=== PATIENT | female | born 1995 | race Caucasian/White ===

== ENCOUNTER 2022-07-28 16:09 | Emergency (ER) | payer OTHER, SELFPAY ==
--- NOTE | ~2022-07-28 | CT_ITS ---
EXAMINATION: CT ankle LT wo con DATE: 07/28/2022 18:40 INDICATION: Possible calcaneal fracture TECHNIQUE: Computed tomography (CT) of the left ankle was performed without intravenous contrast. The dose-length product was 329.20 mGy-cm. Automated exposure control and iterative reconstruction technique were employed. COMPARISON: Left foot series dated 07/28/2022 FINDINGS: There are small avulsion fracture fragments along the distal lateral margin of the cuboid b one with adjacent soft tissue swelling. The calcaneus appears to be intact. There is also a subtle av ulsion from the lateral margin of the talus, age indeterminate.. IMPRESSION: 1. Avulsion fractures from the distal lateral margin of the cuboid and the lateral aspect of the talu s with associated soft tissue swelling. Reviewed, dictated and finalized at location A. LIGHTER IMPRESSION: 1. Avulsion fractures from the distal lateral margin of the cuboid and the late ral aspect of the talus with associated soft tissue swelling.
--- NOTE | ~2022-07-28 | XR_ITS ---
XR foot LT min 3V 07/28/2022 17:55 INDICATION: Left foot pain and swelling after fall PROCEDURE: 4 views left foot COMPARISON: No prior studies for comparison. FINDINGS: There is an avulsion fracture likely originating from the distal lateral margin of the calc aneus. There is adjacent soft tissue swelling. No other fracture. Lisfranc joint intact. No foreign b odies. Ankle mortise intact.. IMPRESSION: 1: Small avulsion fracture likely originating from the distal lateral margin of the calcaneus. Correl ate clinically for point tenderness. Reviewed, dictated and finalized at location A. [employer] IMPRESSION: 1: Small avulsion fracture likely originating from the distal lateral margin of the calcaneus. Correlate clinically for point tenderness.
[2022-07-28 17:11] VITALS: BP 131/78; PULSE 99; RESP 14; TEMP 37.4; O2SAT 100
--- NOTE | 2022-07-28 17:58 | ED.LOWEXIN ---
HPI - Extremity Injury (Lower) General Chief Complaint: Extremity Injury, Lower Stated Complaint: covid + ankle pain Time Seen by Provider: 07/28/22 17:52 History of Present Illness HPI Narrative: Patient is a 27-year-old female here for evaluation of left foot pain after a fall today. Patient states that she was going down several steps when she accidentally stepped with her foot in inversion. Since the accident she has reported pain on the lateral aspect of her left foot, worse with inversion and with walking. She has not taken any medicine for pain. Denies any numbness or tingling in the extremity. Related Data Allergies Allergy/AdvReac Type Severity Reaction Status Date / Time No Known Allergies Allergy Verified 07/28/22 18:03 Review of Systems Review of Systems: Gen.: Denies fevers or chills Eyes: Denies eye pain or visual change ENT: Denies congestion Respiratory: Denies shortness of breath or cough CV: Denies chest pain or palpitations GI: Reports abdominal pain nausea, emesis or diarrhea denies burning, urgency, frequency or hematuria Musculoskeletal: Reports left foot pain. D Neuro: Denies numbness, tingling, weakness or focal weakness Skin: Denies rash 10 point review of systems negative, other than as per history of present illness, past medical history and other positives and review of systems Exam Narrative: Gen: Alert, oriented, no acute disease Eyes: EOMI, no icterus Pulm: Respirations even and unlabored, symmetric thorax expansion, no audible stridor or visible cyanosis CV: Regular rate per telemetry GI: No distension, no voluntary/involuntary guarding Neuro: AOx4, moves all extremities without apparent difficulty or weakness, follows commands MSK: left foot has swelling and hematoma to lateral aspect over the base of the fifth metatarsal. She has tenderness to palpation along the lateral aspect and medial aspect of the calcaneus. Patient is able to plantar and dorsiflex the foot, notes most pain with plantarflexion. Compartments are soft. Skin: She has a small superficial abrasion over the lateral aspect of the foot with no active bleeding. Psych: Normal mood/affect, insight/judgement good, adequate fund of knowledge, recent/remote memory intact Course Vital Signs Vital signs: Vital Signs Temperature 99.3 F 07/28/22 17:11 Pulse Rate 99 07/28/22 17:11 Respiratory Rate 14 07/28/22 17:11 Blood Pressure 131/78 07/28/22 17:11 Pulse Oximetry 100 07/28/22 17:11 Oxygen Delivery Room Air 07/28/22 17:11 Temperature 99.3 F 07/28/22 17:11 Pulse Rate 99 07/28/22 17:11 Respiratory Rate 14 07/28/22 17:11 Blood Pressure 131/78 07/28/22 17:11 Pulse Oximetry 100 07/28/22 17:11 Oxygen Delivery Room Air 07/28/22 17:11 MDM - Extremity Injury (Lower) MDM Narrative Medical decision making narrative: 27-year-old female here for evaluation of left foot pain after a mechanical fall today. Patient has soft compartments, strong distal pulses, but has swelling and tenderness to the base of her fifth metatarsal. There was evidence of a possible lateral calcaneal avulsion fracture on the x-ray, followed up by CT that shows a avulsion fracture of her cuboid and talus. She was placed in a posterior short leg splint and was instructed to follow-up with orthopedics. She was given crutches. We discussed return precautions and she voiced understanding. Discharge Plan Discharge Clinical Impression: Fracture of cuboid Qualifiers: Encounter type: initial encounter Fracture type: closed Laterality: left Fracture of talus Qualifiers: Encounter type: initial encounter Fracture type: closed Laterality: left Patient Disposition: Home, Self-Care Condition: Stable Instructions: Antibiotic Form, Foot Fracture in Adults (ED) Additional Instructions: You have evidence of a fracture of your cuboid and your talus, which are both bones in your foot. You were placed in a splint
[2022-07-28] MEDS: IBUPROFEN 400 MG TABLET PO (18:04)
== END 2022-07-28 19:54 | disposition home or self-care (01) ==
PROVIDERS: Emergency Provider Physician Assistant; PCP Internal Medicine
DX: S92.212A Displaced fracture of cuboid bone of left foot, initial encounter for closed fracture (principal); S92.142A Displaced dome fracture of left talus, initial encounter for closed fracture; U07.1 COVID-19; X50.9XXA Other and unspecified overexertion or strenuous movements or postures, initial encounter; W10.9XXA Fall (on) (from) unspecified stairs and steps, initial encounter
CPT/HCPCS: 29515; 73630; 73700; 99284; A9270